=== PATIENT | male | born 1955 | race Caucasian/White ===

== ENCOUNTER 2017-11-06 07:06 | Inpatient (IN) | payer BC ==
[2017-11-06] MEDS ORDERED: CEFAZOLIN 2 GM/50 ML (PMX) 50 ML IVPB (09:00)
[2017-11-06] MEDS ORDERED: TOBRAMYCIN 1.2 GM POWDER (10:41)
[2017-11-06] MEDS ORDERED: THROMBIN 5000 UNIT VIAL (10:41)
[2017-11-06] MEDS ORDERED: MIDAZOLAM 1 MG/ML 2 ML INJ (10:57)
[2017-11-06] MEDS ORDERED: morphine SULFATE/PF (10 MG/10 ML) INJ (10:58)
[2017-11-06] MEDS: BACITRACIN 50000 UNITS INJ (12:08)
[2017-11-06] MEDS: VANCOMYCIN 1 GM INJ (12:08)
[2017-11-06] MEDS: POLYMYXIN B 500000 UNIT INJ (12:08)
[2017-11-06] MEDS: [UNRECOGNIZED DRUG - OTHER] INJ (12:09)
[2017-11-06] MEDS ORDERED: VANCOMYCIN 1 GM INJ (12:17)
[2017-11-06] MEDS ORDERED: POLYMYXIN B 500000 UNIT INJ (12:17)
[2017-11-06] MEDS ORDERED: NEOSTIGMINE 3 MG/3 ML SYRINGE (13:40)
[2017-11-06] MEDS ORDERED: ROCURONIUM 50 MG INJ (13:40)
[2017-11-06] MEDS ORDERED: ONDANSETRON 4 MG INJ (13:40)
[2017-11-06] MEDS ORDERED: GLYCOPYRROLATE 0.4 MG INJ (13:40)
[2017-11-06] MEDS ORDERED: LIDOCAINE 2% (SDV) 5 ML INJ (13:40)
[2017-11-06] MEDS ORDERED: ETOMIDATE 20 MG INJ (13:40)
[2017-11-06] MEDS ORDERED: CEFAZOLIN 1 GM INJ (13:40)
[2017-11-06] MEDS ORDERED: METOCLOPRAMIDE 10 MG INJ IV (14:00)
[2017-11-06] MEDS ORDERED: hydrALAzine 20 MG INJ IV (14:00)
[2017-11-06] MEDS ORDERED: MAGNESIUM HYDROXIDE 30ML CUP PO (14:00)
[2017-11-06] MEDS ORDERED: DIPHENHYDRAMINE 50 MG INJ IM (14:00)
[2017-11-06] MEDS ORDERED: FENTAnyl 50 MCG/ML VIAL IV (14:00)
[2017-11-06] MEDS ORDERED: LABETALOL HCL 20MG INJ IV (14:00)
[2017-11-06] MEDS ORDERED: ZOLPIDEM 5 MG TAB PO (14:00)
[2017-11-06] MEDS ORDERED: SENNA/DOCUSATE NA (8.6MG/50MG) TAB PO (14:00)
[2017-11-06] MEDS ORDERED: NACL 0.9% 3 ML SYG IV (14:00)
[2017-11-06] MEDS ORDERED: MEPERIDINE 25 MG INJ IV (14:00)
[2017-11-06] MEDS ORDERED: NALOXONE (0.4 MG/ML) INJ IV (14:00)
[2017-11-06] MEDS ORDERED: HYDROmorphONE (0.2 MG/ML) 10ML SYG IV ×2 (14:00)
[2017-11-06] MEDS ORDERED: NA PHOSPHATE/BIPHOS 133 ML ENEMA PR (14:00)
[2017-11-06] MEDS ORDERED: DIPHENHYDRAMINE 50 MG INJ IV (14:00)
[2017-11-06] MEDS ORDERED: BISACODYL 10 MG SUPP PR (14:00)
[2017-11-06] MEDS ORDERED: BETHANECHOL 25 MG TAB PO (14:00)
[2017-11-06] MEDS: ONDANSETRON 4 MG INJ IV ×4 (14:00→21:02)
[2017-11-06] MEDS ORDERED: oxyCODONE 5 MG TAB PO ×3 (14:00)
[2017-11-06] MEDS ORDERED: KETOROLAC 15 MG INJ INJ (14:00)
[2017-11-06] MEDS: CEFAZOLIN 1 GM/50 ML (PMX) 50 ML IVPB ×2 (14:22→21:45)
[2017-11-06] MEDS: DOCUSATE SODIUM 100 MG CAP PO (14:23)
[2017-11-06] MEDS: ASPIRIN (EC) 325 MG TAB PO ×2 (14:24→21:02)
[2017-11-06] MEDS: SOD CHLORIDE 0.9% 1,000 ML IV (15:33)
[2017-11-07] MEDS: SOD CHLORIDE 0.9% 1,000 ML IV ×2 (02:13→14:45)
[2017-11-07] MEDS: ONDANSETRON 4 MG INJ IV ×2 (02:13→08:34)
[2017-11-07 05:13] LABS: ADD MAN DIFF? NO
[2017-11-07 05:20] LABS: BASOPHIL # 0.1 10^3/ul (0.0-0.1); BASOPHILS % 0.5 % (0.0-2.0); EOSINOPHILS # 0.1 10^3/ul (0.0-0.5); EOSINOPHILS % 0.7 % (0.0-7.0); HEMATOCRIT 31.3 % (42.0-52.0); HEMOGLOBIN 10.8 g/dl (14.0-18.0); LYMPHOCYTES # 1.2 10^3/ul (0.8-2.9); LYMPHOCYTES % 10.9 % (15.0-51.0); MEAN CORPUSCULAR HEMOGLOBIN 29.8 pg (29.0-33.0); MEAN CORPUSCULAR HGB CONC 34.5 g/dl (32.0-37.0); MEAN CORPUSCULAR VOLUME 86.5 fl (82.0-101.0); MEAN PLATELET VOLUME 9.8 fl (7.4-10.4); MONOCYTE # 1.5 10^3/ul (0.3-0.9); MONOCYTES % 13.2 % (0.0-11.0); NEUTROPHIL # 8.2 10^3/ul (1.6-7.5); NEUTROPHILS % 74.1 % (39.0-77.0); PLATELET COUNT 214 10^3/UL (140-415); RED BLOOD COUNT 3.62 10^6/ul (4.70-6.10); RED CELL DISTRIBUTION WIDTH 13.2 % (11.5-14.5)
[2017-11-07 05:34] LABS: ANION GAP 12 (8-16); BLOOD UREA NITROGEN 16 mg/dl (7-20); CALCIUM 8.3 mg/dl (8.4-10.2); CARBON DIOXIDE 23 mmol/L (21-31); CHLORIDE 105 mmol/L (97-110); CREATININE 0.82 mg/dl (0.61-1.24); GLUCOSE 136 mg/dl (70-220); SODIUM 136 mmol/L (135-144)
[2017-11-07] MEDS: CEFAZOLIN 1 GM/50 ML (PMX) 50 ML IVPB (06:13)
[2017-11-07] MEDS: PANTOPRAZOLE (EC) 40 MG TAB PO (06:13)
[2017-11-07] MEDS: FERROUS FUMARATE (SR) TAB PO (08:33)
[2017-11-07] MEDS: DOCUSATE SODIUM 100 MG CAP PO (08:34)
[2017-11-07] MEDS: ASPIRIN (EC) 325 MG TAB PO (08:34)
[2017-11-07] MEDS: CELECOXIB 200 MG CAP PO (08:36)
[2017-11-07] MEDS: LISINOPRIL 10 MG TAB PO (08:46)
[2017-11-07 11:10] LABS: ADD UMIC YES; UR ASCORBIC ACID NEGATIVE (NEGATIVE); UR BACTERIA FEW /HPF (NONE SEEN); UR BILIRUBIN (Dip) NEGATIVE (NEGATIVE); UR BLOOD (Dip) 1+ mg/dL (NEGATIVE); UR CLARITY SLIGHTLY CLOUDY (CLEAR); UR COLOR YELLOW (YELLOW); UR GLUCOSE (Dip) NEGATIVE (NEGATIVE); UR KETONES (Dip) NEGATIVE (NEGATIVE); UR LEUKOCYTE ESTERASE (Dip) NEGATIVE Leu/ul (NEGATIVE); UR MUCUS FEW /HPF (NONE SEEN); UR NITRITE (Dip) NEGATIVE (NEGATIVE); UR RBC 5 /HPF (0-5); UR SPECIFIC GRAVITY (Dip) 1.018 (1.003-1.030); UR TOTAL PROTEIN (Dip) NEGATIVE (NEGATIVE); UR UROBILINOGEN (Dip) NEGATIVE (NEGATIVE); UR WBC 3 /HPF (0-5)
== END 2017-11-07 15:50 | disposition home health service (06) | DRG 470 ==
LOC: REC 07:06 → MS1 14:56
PROC: 0SRB03A Replacement of Left Hip Joint with Ceramic Synthetic Substitute, Uncemented, Open Approach (ICD-10-PCS; principal; 2017-11-06 10:30)
DX: M16.12 Unilateral primary osteoarthritis, left hip (principal); E66.01 Morbid (severe) obesity due to excess calories; I10 Essential (primary) hypertension; Z68.29 Body mass index [BMI] 29.0-29.9, adult; M17.0 Bilateral primary osteoarthritis of knee; N40.0 Benign prostatic hyperplasia without lower urinary tract symptoms
CPT/HCPCS: 73500; 73530; 80048; 81001; 85025; 86850; 86900; 86901; 87086; 97110; 97116; 97163; 97165; 97530; 97535

== ENCOUNTER → 2017-11-20 | Outpatient (CLI) | payer BC | END | disposition home or self-care (01) | LOC: HKI 10:09 | DX: Z47.1 Aftercare following joint replacement surgery (principal); M16.12 Unilateral primary osteoarthritis, left hip; Z96.642 Presence of left artificial hip joint ==

== ENCOUNTER → 2017-12-25 | Outpatient (CLI) | payer BC | END | disposition home or self-care (01) | LOC: HKI 09:51 | DX: Z09 Encounter for follow-up examination after completed treatment for conditions other than malignant neoplasm (principal); M16.12 Unilateral primary osteoarthritis, left hip; Z96.642 Presence of left artificial hip joint | CPT/HCPCS: 73502 ==

== ENCOUNTER → 2018-01-22 | Outpatient (CLI) | payer BC | END | disposition home or self-care (01) | LOC: HKI 10:03 | DX: Z09 Encounter for follow-up examination after completed treatment for conditions other than malignant neoplasm (principal); M16.12 Unilateral primary osteoarthritis, left hip; Z96.652 Presence of left artificial knee joint | CPT/HCPCS: 73502 ==